=== PATIENT | female | born 1930 | race Caucasian/White ===

== ENCOUNTER 2017-08-25 18:01 | Inpatient (IN) | payer MEDICARE ==
[2017-08-25] MEDS ORDERED: DUONEB 0.5-3 MG/3 ml Neb IH ONE ×2 (18:08→18:42)
--- NOTE | 2017-08-25 18:13 | ERPHSYRPT ---
- History of Present Illness Time Seen by Provider: 08/25/17 18:08 Source: patient, family (son) Patient Subjective Stated Complaint: PT STATES FOR THE PAST FEW DAYS SHE HAS HAD A COUGH AND SOB. hX OF A-FIB. Triage Nursing Assessment: PT PALE, WARM, DRY. LUNG SOUNDS DIMINISHED. PT SOB WITH EXERTION FROM WHEELCHAIR TO BED. Physician History: CC: short of air Hx: 87 y/o patient of Dr Rothman. She has hx of paroxysmal atrial fibrillation and is now on multaq and xarelto. She was in and out of afib last week. She had some episodes of cough and shortness of breath. and now today. No fever. No chest pain. She has some exertional dyspnea and feels tired. Son brought her to ER. She lives alone with his close support. Allergies/Adverse Reactions: diphenhydramine HCl [From Benadryl] Allergy (Mild, Verified 08/25/17 18:09) iodine [Iodine] Allergy (Mild, Verified 08/25/17 18:09) Home Medications: Aspirin 81 mg PO DAILY 01/24/12 [History] Simvastatin 20Mg [Zocor 20Mg] 20 mg PO HS 01/24/12 [History] Amlodipine Besylate 5 mg PO DAILY 08/25/17 [History] Bifidobacterium Infantis [Align] 0 mg PO DAILY 08/25/17 [History] Calcium Citrate/Vitamin D3 [Citracal + D Caplet] 1 each PO DAILY 08/25/17 [ History] Carvedilol 25 mg PO TID 08/25/17 [History] Cetirizine HCl [Zyrtec] 10 mg PO DAILY 08/25/17 [History] Dronedarone Hydrochloride 400* [Multaq 400 MG] 400 mg PO BID 08/25/17 [ History] Potassium 99 mg PO DAILY 08/25/17 [History] Rivaroxaban 10 mg Tablet [Xarelto 10 mg Tablet] 15 mg PO DAILY 08/25/17 [ History] Hx Tetanus, Diphtheria Vaccination/Date Given: Yes (UNKNOWN) Hx Influenza Vaccination/Date Given: Yes Hx Pneumococcal Vaccination/Date Given: Yes Immunizations Up to Date: Yes - Review of Systems Constitutional: Chills, Fatigue, Malaise, Weakness Eyes: No Symptoms Ears, Nose, & Throat: No Symptoms Respiratory: Cough, Dyspnea Cardiac: No Chest Pain Abdominal/Gastrointestinal: No Abdominal Pain, No Nausea, No Vomiting, No Diarrhea Genitourinary Symptoms: No Dysuria Skin: No Rash Neurological: Headache All Other Systems: Reviewed and Negative - Past Medical History Pertinent Past Medical History: Yes Neurological History: No Pertinent History ENT History: No Pertinent History Cardiac History: High Cholesterol, Hypertension Respiratory History: No Pertinent History Endocrine Medical History: No Pertinent History Musculoskeletal History: No Pertinent History GI Medical History: No Pertinent History History: No Pertinent History Psycho-Social History: No Pertinent History Female Reproductive Disorders: No Pertinent History Other Medical History: Paroxysmal atiral fibrillation - Past Surgical History Past Surgical History: Yes Neuro Surgical History: No Pertinent History Cardiac: Cardiac Catheterization, Cardiac Stent Respiratory: No Pertinent History Gastrointestinal: No Pertinent History Genitourinary: No Pertinent History Musculoskeletal: No Pertinent History Female Surgical History: Hysterectomy - Social History Smoking Status: Never smoker Exposure to second hand smoke: No Drug Use: none Patient Lives Alone: No - Female History Hx Now: No - Nursing Vital Signs Nursing Vital Signs: Initial Vital Signs Temperature 99.7 F 08/25/17 18:02 Pulse Rate 69 08/25/17 18:02 Respiratory Rate 24 08/25/17 18:02 Blood Pressure 149/78 08/25/17 18:02 O2 Sat by Pulse Oximetry 93 L 08/25/17 18:02 Pain Scale Pain Intensity 0 - Physical Exam General Appearance: alert Eye Exam: PERRL/EOMI Ears, Nose, Throat Exam: dry mucous membranes Neck Exam: normal inspection, non-tender, supple Respiratory Exam: diminished breath sounds, No wheezing Cardiovascular Exam: regular rate/rhythm Gastrointestinal/Abdomen Exam: soft, No tenderness, No distention Extremity Exam: normal inspection, normal range of motion, No calf tenderness, No pedal edema Neurologic Exam: alert, oriented x 3, cooperative, sensation nml, No motor deficits Skin Exam: warm, dry, No rash SpO2 Interpretation: borderline oxygenation SpO2: 95 Oxygen Delivery: Room Air - Course Nursing assessment & vital signs reviewed: Yes EKG Interpreted by Me: RATE (70), Sinus Rhythm, NORMAL AXIS, NORMAL INTERVALS ( QTc 428), NORMAL QRS, NORMAL ST-T - Radiology Exams cxr X-ray Interpretation: Reviewed by me (moderate CHF, RLL infiltrates predominate) Ordered Tests: Active Orders 24 hr Category Date Time Status Manifold Operator STAT Care 08/25/17 18:09 Active EKG-ER Only STAT Care 08/25/17 18:08 Active IV Insertion STAT Care 08/25/17 18:08 Active Pulse Oximetry (ED) STAT Care 08/25/17 18:08 Active Rectal Temperature STAT Care 08/25/17 18:08 Active CHEST 1 VIEW (PORTABLE) Stat Exams 08/25/17 18:09 Taken BLOOD CULTURE Stat Lab 08/25/17 18:17 Received CBC W DIFF Stat Lab 08/25/17 18:17 Completed CMP Stat Lab 08/25/17 18:17 Completed Lactic Acid Stat Lab 08/25/17 18:08 Completed NT PRO BNP Stat Lab 08/25/17 18:17 Completed TROPONIN Q3H Lab 08/25/17 18:27 Completed TROPONIN Q3H Lab 08/25/17 21:15 Ordered TROPONIN Q3H Lab 08/26/17 00:15 Ordered TROPONIN Q3H Lab 08/26/17 03:15 Ordered TROPONIN Q3H Lab 08/26/17 06:15 Ordered VENOUS BLOOD GAS Stat Lab 08/25/17 18:08 Completed Respiratory Nebulizer STAT RT 08/25/17 18:09 Completed Medication Summary Generic Name Dose Route Start Last Admin Trade Name Freq PRN Reason Stop Dose Admin Sodium Chloride 1,000 mls @ 50 mls/hr 08/25/17 18:15 08/25/17 18:30 Sodium Chloride 0.9% 1000 Ml IV 09/24/17 18:14 50 mls/hr .Q20H MARICRUZ Administration Ceftriaxone Sodium/Dextrose 1 g in 50 mls @ 100 mls/hr 08/25/17 18:52 Rocephin 1 Gm-D5w 50 Ml Bag IV 08/25/17 19:21 STAT STA Azithromycin 500 mg in 250 mls @ 250 mls/hr 08/25/17 18:52 Zithromax 500 Mg/ 250 Ml Nacl Premix IV 08/25/17 19:51 STAT STA Discontinued Medications Generic Name Dose Route Start Last Admin Trade Name Freq PRN Reason Stop Dose Admin Acetaminophen 650 mg 08/25/17 18:52 Tylenol 325 Mg PO 08/25/17 18:53 STAT ONE Albuterol/Ipratropium 3 ml 08/25/17 18:08 08/25/17 18:45 Duoneb 0.5-3 Mg/3 Ml Neb IH 08/25/17 18:09 3 ml STAT ONE Administration Albuterol/Ipratropium Confirm 08/25/17 18:42 Duoneb 0.5-3 Mg/3 Ml Neb Administered 08/25/17 18:43 Dose 3 ml IH .STK-MED ONE Lab/Rad Data: Laboratory Result Diagrams 08/25/17 18:17 08/25/17 18:17 Laboratory Results 08/25/17 08/25/17 08/25/17 Range/Units 18:27 18:17 18:17 WBC 10.4 (4.0-10.5) K/mm3 RBC 4.15 (4.1-5.4) M/mm3 Hgb 12.3 (12.0-16.0) gm/dl Hct 37.3 (35-47) % MCV 89.9 (78-100) fl MCH 29.6 (26-32) pg MCHC 33.0 (32-36) g/dl RDW 13.2 (11.5-14.0) % Plt Count 176 (150-450) K/mm3 MPV 10.8 H (6-9.5) fl Gran % 77.9 H (36.0-66.0) % Lymphocytes % 9.7 L (24.0-44.0) % Monocytes % 10.3 (0.0-12.0) % Eosinophils % 1.7 (0.00-5.0) % Basophils % 0.4 (0.0-0.4) % Basophils # 0.04 (0-0.4) VBG pH (7.32-7.42) VBG pCO2 at Pat Temp (42-55) mm/Hg VBG pO2 at Pat Temp (25-40) mm/Hg VBG HCO3 (22-28) meq/L VBG O2 Sat (Eliel) (95-100) VBG Base Excess (-2.0-2.0) VBG Hemoglobin VBG Carboxyhemoglobin (0.0-6.9) % T HGB POC Potassium (3.5-5.1) Sodium 135 L (136-145) mEq/L Potassium 3.9 (3.5-5.1) mEq/L Chloride 101 (98-107) mEq/L Carbon Dioxide 23.7 (21-32) mEq/L Anion Gap 14.2 (5-15) MEQ/L BUN 19 (9-20) mg/dL Creatinine 1.07 (0.55-1.30) mg/dl Estimated GFR 52 ML/MIN Glucose 145 H (70-110) MG/DL Lactic Acid (0.4-2.0) Calcium 8.6 (8.5-10.1) mg/dL Total Bilirubin 0.60 (0.2-1.0) mg/dL AST 20 (15-37) U/L ALT 26 (12-78) U/L Alkaline Phosphatase 71 (46-116) U/L Troponin I < 0.017 (0.000-0.056) ng/ml NT-Pro-B Natriuret Pep 1974 H (0-450) pg/ml Serum Total Protein 7.3 (6.4-8.2) gm/dL Albumin 3.6 (3.4-5.0) g/dL 08/25/17 Range/Units 18:08 WBC (4.0-10.5) K/mm3 RBC (4.1-5.4) M/mm3 Hgb (12.0-16.0) gm/dl Hct (35-47) % MCV (78-100) fl MCH (26-32) pg MCHC (32-36) g/dl RDW (11.5-14.0) % Plt Count (150-450) K/mm3 MPV (6-9.5) fl Gran % (36.0-66.0) % Lymphocytes % (24.0-44.0) % Monocytes % (0.0-12.0) % Eosinophils % (0.00-5.0) % Basophils % (0.0-0.4) % Basophils # (0-0.4) VBG pH 7.41 (7.32-7.42) VBG pCO2 at Pat Temp 38 L (42-55) mm/Hg VBG pO2 at Pat Temp 47 H (25-40) mm/Hg VBG HCO3 24.1 (22-28) meq/L VBG O2 Sat (Eliel) 89.5 L (95-100) VBG Base Excess -0.4 (-2.0-2.0) VBG Hemoglobin 13.2 VBG Carboxyhemoglobin 2.8 (0.0-6.9) % T HGB POC Potassium 4.2 (3.5-5.1) Sodium (136-145) mEq/L Potassium (3.5-5.1) mEq/L Chloride (98-107) mEq/L Carbon Dioxide (21-32) mEq/L Anion Gap (5-15) MEQ/L BUN (9-20) mg/dL Creatinine (0.55-1.30) mg/dl Estimated GFR ML/MIN Glucose (70-110) MG/DL Lactic Acid 1.1 (0.4-2.0) Calcium (8.5-10.1) mg/dL Total Bilirubin (0.2-1.0) mg/dL AST (15-37) U/L ALT (12-78) U/L Alkaline Phosphatase (46-116) U/L Troponin I (0.000-0.056) ng/ml NT-Pro-B Natriuret Pep (0-450) pg/ml Serum Total Protein (6.4-8.2) gm/dL Albumin (3.4-5.0) g/dL - Progress Progress Note: 08/25/17 19:13 She appears to have some degree of heart failure and pneumonia. 101 fever. She feels better after nebs. CAlled Dr Sylvester Hoang for Gianna and will admit to IP Tele. Low dose lasix, abtx. Cultures sent. Discussed with DrCynthia: Nader Will see patient in: hospital (full admit) Counseled pt/family regarding: lab results, diagnosis, need for follow-up, rad results - Departure Time of Disposition: 19:17 Departure Disposition: In-patient Admission Clinical Impression: CHF (congestive heart failure), Fever, Pneumonia Condition: Fair Critical Care Time: No Referrals: JON OG [Primary Care Provider] -
[2017-08-25] MEDS ORDERED: Sodium Chloride 0.9% 1000 ML 1,000 ML IV SCH (18:15)
[2017-08-25 18:19] LABS: Lactic Acid 1.1 (0.4-2.0); VBG BASE EXCESS -0.4 (-2.0-2.0); VBG CARBOXYHEMOGLOBIN 2.8 % T HGB (0.0-6.9); VBG HCO3- 24.1 meq/L (22-28); VBG HEMOGLOBIN 13.2; VBG O2 SATURATION 89.5 (95-100); VBG POTASSIUM 4.2 (3.5-5.1); VBG pH 7.41 (7.32-7.42)
[2017-08-25 18:22] LABS: BASOPHIL % 0.4 % (0.0-0.4); Basophil (Absolute #) 0.04 (0-0.4); Eosinophil % 1.7 % (0.00-5.0); Eosinophil (Absolute #) 0.18 (0-0.5); Granulocyte Absolute (ANC) 8.13 (1.4-6.9); Granulocytes % 77.9 % (36.0-66.0); Hematocrit 37.3 % (35-47); Hemoglobin 12.3 gm/dl (12.0-16.0); Lymphocyte (Absolute #) 1.01 (1.0-4.6); Lymphocytes % 9.7 % (24.0-44.0); Mean Cell Volume 89.9 fl (78-100); Mean Corpuscular Hemoglobin 29.6 pg (26-32); Mean Platelet Volume 10.8 fl (6-9.5); Monocyte (Absolute #) 1.07 (0.0-1.3); Monocytes % 10.3 % (0.0-12.0); Platelet Count 176 K/mm3 (150-450); Red Blood Count 4.15 M/mm3 (4.1-5.4); Red Cell Distribution Width 13.2 % (11.5-14.0); White Blood Count 10.4 K/mm3 (4.0-10.5)
[2017-08-25 18:48] LABS: ALBUMIN 3.6 g/dL (3.4-5.0); ANION GAP 14.2 MEQ/L (5-15); BILIRUBIN,TOTAL 0.6 mg/dL (0.2-1.0); Calcium 8.6 mg/dL (8.5-10.1); Carbon Dioxide 23.7 mEq/L (21-32); Creatinine 1 1.07 mg/dl (0.55-1.30); Potassium 3.9 mEq/L (3.5-5.1); Total Protein 7.3 gm/dL (6.4-8.2)
[2017-08-25] MEDS ORDERED: Zithromax 500 MG/ 250 ML NaCl Premix 500 MG/250 ML IVPB IV STA (18:52)
[2017-08-25] MEDS ORDERED: ROCEPHIN 1 Gm-D5w 50 ml Bag** 1 G/50 ML IVPB IV STA (18:52)
[2017-08-25] MEDS ORDERED: TYLENOL 325 MG PO ONE (18:52)
[2017-08-25] MEDS ORDERED: Lasix 40 MG/4 ML IV ONE (19:11)
[2017-08-25 19:22] LABS: INFLUENZA A NEGATIVE (NEGATIVE); INFLUENZA B NEGATIVE (NEGATIVE); RESPIRATORY SYNCTIAL VIRUS NEGATIVE (Negative)
[2017-08-25] MEDS ORDERED: ROCEPHIN 1 Gm-D5w 50 ml Bag** 1 G/50 ML IVPB IV ONE (19:22)
[2017-08-25] MEDS ORDERED: Lasix 40 MG/4 ML ONE (19:22)
[2017-08-25] MEDS ORDERED: Zithromax 500 MG/ 250 ML NaCl Premix 500 MG/250 ML IVPB IV ONE (19:22)
[2017-08-25] MEDS ORDERED: TYLENOL 325 MG ONE (19:22)
[2017-08-25] MEDS ORDERED: TYLENOL 325 MG PO PRN (20:16)
--- NOTE | 2017-08-25 21:39 | XRAY ---
Indication: Short of breath. Comparison: December 16, 2015. Portable chest now demonstrates cardiomegaly, vascular congestion, and tiny bibasilar effusions favoring cardiac decompensation. Query superimposed right base infiltrate versus atelectasis.
[2017-08-25] MEDS ORDERED: Multaq 400 MG PO SCH (22:00)
[2017-08-25] MEDS ORDERED: DUONEB 0.5-3 MG/3 ml Neb IH PRN (22:16)
[2017-08-25] MEDS ORDERED: ZOCOR 20MG ONE (22:38)
[2017-08-25] MEDS: COREG 12.5 MG PO SCH (22:43)
[2017-08-25] MEDS: ZOCOR 20MG PO SCH (22:43)
[2017-08-25] MEDS ORDERED: DUONEB 0.5-3 MG/3 ml Neb IH SCH (23:00)
[2017-08-26 06:23] LABS: BASOPHIL % 0.2 % (0.0-0.4); Basophil (Absolute #) 0.02 (0-0.4); Eosinophil % 0.5 % (0.00-5.0); Eosinophil (Absolute #) 0.04 (0-0.5); Granulocyte Absolute (ANC) 6.27 (1.4-6.9); Granulocytes % 77.3 % (36.0-66.0); Hemoglobin 10.7 gm/dl (12.0-16.0); Lymphocytes % 9.9 % (24.0-44.0); Mean Cell Volume 90.7 fl (78-100); Mean Corpuscular Hgb Concent. 32.4 g/dl (32-36); Mean Platelet Volume 10.6 fl (6-9.5); Monocyte (Absolute #) 0.98 (0.0-1.3); Monocytes % 12.1 % (0.0-12.0); Platelet Count 143 K/mm3 (150-450); Red Blood Count 3.64 M/mm3 (4.1-5.4); Red Cell Distribution Width 13.1 % (11.5-14.0); White Blood Count 8.1 K/mm3 (4.0-10.5)
[2017-08-26 06:24] LABS: Mean Corpuscular Hemoglobin 29.3 pg (26-32)
[2017-08-26 06:45] LABS: Calcium 8.1 mg/dL (8.5-10.1); Carbon Dioxide 26.3 mEq/L (21-32); Creatinine 1 1.12 mg/dl (0.55-1.30); Potassium 3.2 mEq/L (3.5-5.1)
[2017-08-26] MEDS: Multaq 400 MG PO SCH ×2 (08:58→17:04)
--- NOTE | 2017-08-26 09:31 | PCM.HP ---
History of Present Illness - Chief Complaint Chief Complaint: c/o shortness of breath for 2-3 days History of Present Illness: is a 87 year old female has hx of paroxysmal atrial fibrillation and is now on multaq and xarelto. She was in and out of afib last week. She had some episodes of cough and shortness of breath. and now today. No fever. No chest pain. She has some exertional dyspnea and feels tired. Son brought her to ER. - Review of Systems Constitutional: No Fever, No Chills Eyes: No Symptoms Ears, Nose, & Throat: No Symptoms Respiratory: Orthopnea, Short Of Breath, No Cough Cardiac: Edema, No Chest Pain, No Syncope Abdominal/Gastrointestinal: No Abdominal Pain, No Nausea, No Vomiting, No Diarrhea Genitourinary Symptoms: No Dysuria Musculoskeletal: No Back Pain, No Neck Pain Skin: No Rash Neurological: No Dizziness, No Focal Weakness, No Sensory Changes Psychological: No Symptoms Endocrine: No Symptoms Hematologic/Lymphatic: No Symptoms Immunological/Allergic: No Symptoms Medications & Allergies Home Medications: Home Medication List Aspirin 81 mg PO DAILY 01/24/12 [History Confirmed 08/25/17] Simvastatin 20Mg [Zocor 20Mg] 20 mg PO HS 01/24/12 [History Confirmed ] Amlodipine Besylate 5 mg PO DAILY 08/25/17 [History Confirmed 08/25/17] Bifidobacterium Infantis [Align] 0 mg PO DAILY 08/25/17 [History Confirmed 08/25] Calcium Citrate/Vitamin D3 [Citracal + D Caplet] 1 each PO DAILY 08/25/17 [ History Confirmed 08/25/17] Carvedilol 25 mg PO TID 08/25/17 [History Confirmed 08/25/17] Cetirizine HCl [Zyrtec] 10 mg PO DAILY 08/25/17 [History Confirmed 08/25/17] Dronedarone Hydrochloride 400* [Multaq 400 MG] 400 mg PO BID 08/25/17 [ History Confirmed 08/25/17] Patient Own Med [Patient Own Medication] 1 tab PO BID 08/25/17 [History Confirmed 08/25/17] Potassium 99 mg PO DAILY 08/25/17 [History Confirmed 08/25/17] Rivaroxaban 10 mg Tablet [Xarelto 10 mg Tablet] 15 mg PO DAILY 08/25/17 [ History Confirmed 08/25/17] Allergies/Adverse Reactions: Allergies Allergy/AdvReac Type Severity Reaction Status Date / Time diphenhydramine HCl Allergy Mild Verified 08/25/17 18:09 [From Benadryl] iodine [Iodine] Allergy Mild Verified 08/25/17 18:09 erythromycin base AdvReac Rash Verified 08/25/17 20:35 - Past Medical History Past Medical History: Yes Neurological History: No Pertinent History ENT History: No Pertinent History Cardiac History: High Cholesterol, Hypertension Respiratory History: No Pertinent History Endocrine Medical History: No Pertinent History Musculoskelatal History: No Pertinent History GI Medical History: No Pertinent History History: No Pertinent History Pyscho-Social History: No Pertinent History Reproductive Disorders: No Pertinent History Comment: Paroxysmal atiral fibrillation - Female History Are you now?: No - Past Surgical History Past Surgical History: Yes Neuro Surgical History: No Pertinent History Cardiac History: Cardiac Catheterization, Cardiac Stent Respiratory Surgery: No Pertinent History GI Surgical History: No Pertinent History Genitourinary Surgical Hx: No Pertinent History Musculskeletal Surgical Hx: No Pertinent History Female Surgical History: Hysterectomy - Social History Smoking Status: Never smoker Exposure to second hand smoke: No Alcohol: None Drug Use: none - Physical Exam Vital Signs: Vital Signs - 24 hr Temp Pulse Resp BP Pulse Ox 08/26/17 07:44 66 16 94 L 08/26/17 07:30 99.2 F 65 16 93/50 93 L 08/26/17 04:00 100.1 F 68 19 106/52 92 L 08/26/17 00:00 99.5 F 74 20 110/56 93 L 08/25/17 22:17 72 18 93 L 08/25/17 20:37 98.5 F 67 16 119/63 90 L 08/25/17 19:19 95 08/25/17 18:50 70 20 90 L 08/25/17 18:05 101.2 F 95 08/25/17 18:02 99.7 F 70 18 137/70 93 L Oxygen-Last 24 hours O2 Percentage 3 Liters = 32% O2 Percentage 3 Liters = 32% O2 Percentage 3 Liters = 32% O2 Percentage 3 Liters = 32% O2 Percentage 3 Liters = 32% General Appearance: no apparent distress, alert Neurologic Exam: alert, oriented x 3, cooperative, normal mood/affect, nml cerebellar function, nml station & gait, sensation nml, No motor deficits Eye Exam: PERRL/EOMI, eyes nml inspection Ears, Nose, Throat Exam: normal ENT inspection, TMs normal, pharynx normal, moist mucous membranes Neck Exam: normal inspection, non-tender, supple, full range of motion Respiratory Exam: normal breath sounds, lungs clear, No respiratory distress Cardiovascular Exam: regular rate/rhythm, normal heart sounds, normal peripheral pulses Gastrointestinal/Abdomen Exam: soft, normal bowel sounds, No tenderness, No mass Back Exam: normal inspection, normal range of motion, No CVA tenderness, No vertebral tenderness Extremity Exam: normal inspection, normal range of motion, pelvis stable Skin Exam: normal color, warm, dry, No rash Lymphatic Exam: No adenopathy Results - Labs Lab/Micro Results: Lab Results-Last 24 Hours 08/25/17 08/26/17 08/26/17 Range/Units 21:23 00:11 03:16 WBC (4.0-10.5) K/mm3 RBC (4.1-5.4) M/mm3 Hgb (12.0-16.0) gm/dl Hct (35-47) % MCV (78-100) fl MCH (26-32) pg MCHC (32-36) g/dl RDW (11.5-14.0) % Plt Count (150-450) K/mm3 MPV (6-9.5) fl Gran % (36.0-66.0) % Lymphocytes % (24.0-44.0) % Monocytes % (0.0-12.0) % Eosinophils % (0.00-5.0) % Basophils % (0.0-0.4) % Basophils # (0-0.4) Sodium (136-145) mEq/L Potassium (3.5-5.1) mEq/L Chloride (98-107) mEq/L Carbon Dioxide (21-32) mEq/L Anion Gap (5-15) MEQ/L BUN (9-20) mg/dL Creatinine (0.55-1.30) mg/dl Estimated GFR ML/MIN Glucose (70-110) MG/DL Calcium (8.5-10.1) mg/dL Troponin I < 0.017 < 0.017 < 0.017 (0.000-0.056) ng/ml 08/26/17 08/26/17 08/26/17 Range/Units 06:15 06:15 06:15 WBC 8.1 (4.0-10.5) K/mm3 RBC 3.64 L (4.1-5.4) M/mm3 Hgb 10.7 L (12.0-16.0) gm/dl Hct 33.0 L (35-47) % MCV 90.7 (78-100) fl MCH 29.3 (26-32) pg MCHC 32.4 (32-36) g/dl RDW 13.1 (11.5-14.0) % Plt Count 143 L (150-450) K/mm3 MPV 10.6 H (6-9.5) fl Gran % 77.3 H (36.0-66.0) % Lymphocytes % 9.9 L (24.0-44.0) % Monocytes % 12.1 H (0.0-12.0) % Eosinophils % 0.5 (0.00-5.0) % Basophils % 0.2 (0.0-0.4) % Basophils # 0.02 (0-0.4) Sodium 136 (136-145) mEq/L Potassium 3.2 L (3.5-5.1) mEq/L Chloride 102 (98-107) mEq/L Carbon Dioxide 26.3 (21-32) mEq/L Anion Gap 11.0 (5-15) MEQ/L BUN 18 (9-20) mg/dL Creatinine 1.12 (0.55-1.30) mg/dl Estimated GFR 49 ML/MIN Glucose 124 H (70-110) MG/DL Calcium 8.1 L (8.5-10.1) mg/dL Troponin I < 0.017 (0.000-0.056) ng/ml - Other Procedures and Tests Respiratory Therapy 08/25/17 22:16 Oxygen NASAL CANNULA 3 lpm 08/25/17 22:17 Respiratory Nebulizer UD Assessment/Plan (1) Pneumonia Current Visit: Yes Status: Acute Qualifiers: Pneumonia type: due to unspecified organism Laterality: right Lung location: lower lobe of lung Qualified Code(s): J18.1 - Lobar pneumonia, unspecified organism Code(s): J18.9 - PNEUMONIA, UNSPECIFIED ORGANISM (2) CHF (congestive heart failure) Current Visit: Yes Status: Acute Qualifiers: Congestive heart failure type: combined Congestive heart failure chronicity : acute on chronic Qualified Code(s): I50.43 - Acute on chronic combined systolic (congestive) and diastolic (congestive) heart failure Code(s): I50.9 - HEART FAILURE, UNSPECIFIED
[2017-08-26] MEDS ORDERED: MEDICATION INTERVENTION MC PRN (11:24)
[2017-08-26] MEDS: XARELTO 10 MG TABLET PO SCH (11:45)
[2017-08-26] MEDS: COREG 12.5 MG PO SCH ×3 (11:46→21:58)
[2017-08-26] MEDS: ECOTRIN 81 MG PO SCH (11:46)
[2017-08-26] MEDS: Calcium 500MG W/Vit D Tablet PO SCH (11:46)
[2017-08-26] MEDS: CLARITIN 10 MG PO SCH (11:46)
[2017-08-26] MEDS: Acidophilus TABLET PO SCH (11:46)
[2017-08-26] MEDS: NORVASC 5 MG PO SCH (11:47)
[2017-08-26] MEDS: Lasix 40 MG/4 ML IV SCH (16:07)
[2017-08-26] MEDS: ROCEPHIN 1 Gm-D5w 50 ml Bag** 1 G/50 ML IVPB IV SCH (17:03)
[2017-08-26] MEDS: Zithromax 500 MG/ 250 ML NaCl Premix 500 MG/250 ML IVPB IV SCH (18:09)
[2017-08-26] MEDS: ZOCOR 20MG PO SCH (21:58)
[2017-08-26] MEDS ORDERED: [UNRECOGNIZED DRUG - OTHER] PO SCH (22:00)
[2017-08-27] MEDS: Multaq 400 MG PO SCH ×2 (07:56→16:32)
--- NOTE | 2017-08-27 09:35 | XRAY ---
Indication: Pneumonia. CHF. Comparison: August 25, 2017. PA/lateral chest demonstrates resolved cardiomegaly with diminished vascular congestion. Stable tiny bibasilar effusions. Stable benign lingular nodule dating back to April 2014. No new cardiopulmonary abnormalities.
[2017-08-27] MEDS: Acidophilus TABLET PO SCH (09:38)
[2017-08-27] MEDS: XARELTO 10 MG TABLET PO SCH (09:38)
[2017-08-27] MEDS: NORVASC 5 MG PO SCH (09:38)
[2017-08-27] MEDS: CLARITIN 10 MG PO SCH (09:38)
[2017-08-27] MEDS: Lasix 40 MG/4 ML IV SCH ×2 (09:39→16:32)
[2017-08-27] MEDS: COREG 12.5 MG PO SCH ×3 (09:39→21:33)
[2017-08-27] MEDS: Calcium 500MG W/Vit D Tablet PO SCH (09:49)
[2017-08-27] MEDS: ECOTRIN 81 MG PO SCH (09:49)
[2017-08-27] MEDS ORDERED: NON-FORMULARY ITEM (Cetirizine Hcl [Zyrtec] 10 MG) PO SCH (10:00)
[2017-08-27] MEDS ORDERED: NON-FORMULARY ITEM (Potassium [Potassium] 99 MG) PO SCH (10:00)
[2017-08-27] MEDS ORDERED: BIFIDOBACTERIUM INFANTIS PO SCH (10:00)
[2017-08-27] MEDS ORDERED: NON-FORMULARY ITEM (Calcium Citrate/Vitamin D3 [Citracal + D Caplet] 1 EACH) PO SCH (10:00)
[2017-08-27 10:01] LABS: Hematocrit 34.3 % (35-47); Hemoglobin 11.2 gm/dl (12.0-16.0); Mean Corpuscular Hgb Concent. 32.7 g/dl (32-36); Mean Platelet Volume 10.6 fl (6-9.5); Platelet Count 166 K/mm3 (150-450); Red Blood Count 3.81 M/mm3 (4.1-5.4); Red Cell Distribution Width 13.2 % (11.5-14.0); White Blood Count 7.9 K/mm3 (4.0-10.5)
[2017-08-27 10:04] LABS: Mean Corpuscular Hemoglobin 29.3 pg (26-32)
[2017-08-27 10:09] LABS: ANION GAP 11.1 MEQ/L (5-15); BILIRUBIN,TOTAL 0.7 mg/dL (0.2-1.0); Calcium 8.5 mg/dL (8.5-10.1); Carbon Dioxide 28.2 mEq/L (21-32); Creatinine 1 1.08 mg/dl (0.55-1.30); Potassium 3.1 mEq/L (3.5-5.1); Total Protein 6.9 gm/dL (6.4-8.2)
--- NOTE | 2017-08-27 13:21 | PCM.NOTE ---
Date and Time: 08/27/17 1319 Subjective Assessment: still short of breath, - Review of Systems Constitutional: Fatigue, Weakness, No Fever, No Chills Eyes: No Symptoms Ears, Nose, & Throat: No Symptoms Respiratory: Orthopnea, Short Of Breath, No Cough Cardiac: Palpitations, No Chest Pain, No Edema, No Syncope Abdominal/Gastrointestinal: No Abdominal Pain, No Nausea, No Vomiting, No Diarrhea Genitourinary Symptoms: No Dysuria Musculoskeletal: No Back Pain, No Neck Pain Skin: No Rash Neurological: No Dizziness, No Focal Weakness, No Sensory Changes Psychological: No Symptoms Endocrine: No Symptoms Hematologic/Lymphatic: No Symptoms Immunological/Allergic: No Symptoms Objective Exam General Appearance: no apparent distress, alert Neurologic Exam: alert, oriented x 3, cooperative, normal mood/affect, nml cerebellar function, sensation nml, No motor deficits Skin Exam: normal color, warm, dry Eye Exam: PERRL, EOMI, eyes nml inspection Ears, Nose, Throat Exam: normal ENT inspection, pharynx normal, moist mucous membranes Neck Exam: normal inspection, non-tender, supple, full range of motion Respiratory Exam: crackles/rales, No respiratory distress Cardiovascular Exam: irregular Gastrointestinal/Abdomen Exam: soft, No tenderness, No mass Extremity Exam: normal inspection, normal range of motion Back Exam: normal inspection, normal range of motion, No CVA tenderness, No vertebral tenderness Pelvic Exam: deferred Rectal Exam: deferred OBJECTIVE DATA Vital Signs: Vital Signs - 24 hr Temp Pulse Resp BP Pulse Ox 08/27/17 11:21 98.5 F 96 H 18 108/59 93 L 08/27/17 07:25 98.4 F 86 18 104/65 92 L 08/27/17 04:00 98.1 F 85 16 96/54 90 L 08/27/17 00:00 99 F 99 H 20 104/56 90 L 08/26/17 21:24 90 18 91 L 08/26/17 20:00 98.9 F 93 H 18 101/61 91 L 08/26/17 15:59 99.8 F 66 16 121/58 90 L Oxygen-Last 24 hours O2 Percentage 3 Liters = 32% O2 Percentage 3 Liters = 32% O2 Percentage 3 Liters = 32% O2 Percentage 3 Liters = 32% O2 Percentage 3 Liters = 32% Pain Assessment - Last Documented Pain Intensity 0 Pain Scale Used 0-10 Pain Scale Intake and Output: Intake & Output 08/25/17 08/26/17 08/27/17 08/28/17 11:59 11:59 11:59 11:59 Intake Total 1052 1606 Output Total 600 1900 Balance 452 -294 Weight 71.5 kg 71.3 kg Lab Results: Lab Results-Last 24 Hours 08/27/17 08/27/17 Range/Units 09:28 09:28 WBC 7.9 (4.0-10.5) K/mm3 RBC 3.81 L (4.1-5.4) M/mm3 Hgb 11.2 L (12.0-16.0) gm/dl Hct 34.3 L (35-47) % MCV 90.0 (78-100) fl MCH 29.3 (26-32) pg MCHC 32.7 (32-36) g/dl RDW 13.2 (11.5-14.0) % Plt Count 166 (150-450) K/mm3 MPV 10.6 H (6-9.5) fl Sodium 135 L (136-145) mEq/L Potassium 3.1 L (3.5-5.1) mEq/L Chloride 99 (98-107) mEq/L Carbon Dioxide 28.2 (21-32) mEq/L Anion Gap 11.1 (5-15) MEQ/L BUN 13 (9-20) mg/dL Creatinine 1.08 (0.55-1.30) mg/dl Estimated GFR 51 ML/MIN Glucose 194 H (70-110) MG/DL Calcium 8.5 (8.5-10.1) mg/dL Total Bilirubin 0.70 (0.2-1.0) mg/dL AST 16 (15-37) U/L ALT 18 (12-78) U/L Alkaline Phosphatase 56 (46-116) U/L NT-Pro-B Natriuret Pep 4691 H (0-450) pg/ml Serum Total Protein 6.9 (6.4-8.2) gm/dL Albumin 3.0 L (3.4-5.0) g/dL Radiology Exams: Radiology Procedures Category Date Time Status CHEST 2 VIEWS (PA AND LAT) Urgent Exams 08/27/17 09:18 Completed Assessment/Plan (1) Pneumonia Current Visit: Yes Status: Acute Qualifiers: Pneumonia type: due to unspecified organism Laterality: right Lung location: lower lobe of lung Qualified Code(s): J18.1 - Lobar pneumonia, unspecified organism Code(s): J18.9 - PNEUMONIA, UNSPECIFIED ORGANISM (2) CHF (congestive heart failure) Current Visit: Yes Status: Acute Qualifiers: Congestive heart failure type: combined Congestive heart failure chronicity : acute on chronic Qualified Code(s): I50.43 - Acute on chronic combined systolic (congestive) and diastolic (congestive) heart failure Code(s): I50.9 - HEART FAILURE, UNSPECIFIED (3) Atrial fibrillation Current Visit: Yes Status: Acute Qualifiers: Atrial fibrillation type: chronic Qualified Code(s): I48.2 - Chronic atrial fibrillation Code(s): I48.91 - UNSPECIFIED ATRIAL FIBRILLATION (4) COPD (chronic obstructive pulmonary disease) Current Visit: Yes Status: Acute Qualifiers: COPD type: unspecified COPD Qualified Code(s): J44.9 - Chronic obstructive pulmonary disease, unspecified Assessment & Plan: continue oxygen
[2017-08-27] MEDS ORDERED: POTASSIUM CHLORIDE 20 mEq IN WATER 100ML 20 MEQ/100 ML BAG IV SCH (13:30)
[2017-08-27] MEDS ORDERED: Potassium Chloride 40 MEQ/20 ML VIAL 40 MEQ, XYLOCAINE 1% HCL 20 ML MDV*** 2 ML in Sodi... IV ONE (13:45)
[2017-08-27] MEDS: ROCEPHIN 1 Gm-D5w 50 ml Bag** 1 G/50 ML IVPB IV SCH (18:12)
[2017-08-27] MEDS: Zithromax 500 MG/ 250 ML NaCl Premix 500 MG/250 ML IVPB IV SCH (20:06)
[2017-08-27] MEDS: ZOCOR 20MG PO SCH (21:34)
[2017-08-28] MEDS: Multaq 400 MG PO SCH (07:53)
[2017-08-28] MEDS: XARELTO 10 MG TABLET PO SCH (09:46)
[2017-08-28] MEDS: Acidophilus TABLET PO SCH (09:46)
[2017-08-28] MEDS: NORVASC 5 MG PO SCH (09:46)
[2017-08-28] MEDS: COREG 12.5 MG PO SCH (09:46)
[2017-08-28] MEDS: Lasix 40 MG/4 ML IV SCH (09:46)
[2017-08-28] MEDS: CLARITIN 10 MG PO SCH (09:47)
[2017-08-28] MEDS: ECOTRIN 81 MG PO SCH (09:47)
[2017-08-28] MEDS: Calcium 500MG W/Vit D Tablet PO SCH (09:47)
[2017-08-28 11:27] VITALS: BP 122/63; PULSE 78; O2SAT 97
--- NOTE | 2017-08-28 11:42 | PCM.DS ---
Discharge Summary Date of Admission: 08/25/17 20:05 Admitting Physician: ESDRAS PARTIDA Primary Care Provider: ESDRAS PARTIDA Allergies Allergies diphenhydramine HCl [From Benadryl] Allergy (Mild, Verified 08/25/17 18:09) iodine [Iodine] Allergy (Mild, Verified 08/25/17 18:09) erythromycin base Adverse Reaction (Verified 08/25/17 20:35) Rash Hospital Summary - Hospital Course Hospital Course: Chief Complaint Diagnosis c/o shortness of breath for 2-3 days Allergies Allergy/AdvReac Type Severity Reaction Status Date / Time diphenhydramine HCl Allergy Mild Verified 08/25/17 18:09 [From Benadryl] iodine [Iodine] Allergy Mild Verified 08/25/17 18:09 erythromycin base AdvReac Rash Verified 08/25/17 20:35 Vital Signs (Last 24 hours) Temp Pulse Resp BP Pulse Ox 08/28/17 11:26 98.1 F 78 18 122/63 97 08/28/17 07:30 98.4 F 81 16 120/57 94 L 08/28/17 04:00 99.4 F 81 18 121/59 93 L 08/28/17 00:00 98.7 F 79 18 118/59 92 L 08/27/17 21:10 72 18 86 L 08/27/17 20:00 99.1 F 68 18 111/55 92 L 08/27/17 15:37 98.1 F 90 20 110/60 94 L Home Medications Medication Instructions Recorded Confirmed Last Taken Type Amlodipine Besylate 5 mg PO DAILY 08/25/17 08/25/17 08/25/17 History Bifidobacterium Infantis [Align] 0 mg PO DAILY 08/25/17 08/25/17 08/25/17 History Calcium Citrate/Vitamin D3 1 each PO DAILY 08/25/17 08/25/17 08/25/17 History [Citracal + D Caplet] Carvedilol 25 mg PO TID 08/25/17 08/25/17 08/25/17 History Cetirizine HCl [Zyrtec] 10 mg PO DAILY 08/25/17 08/25/17 08/25/17 History Dronedarone Hydrochloride 400* 400 mg PO BID 08/25/17 08/25/17 08/25/17 History [Multaq 400 MG] Patient Own Med [Patient Own 1 tab PO BID 08/25/17 08/25/17 08/25/17 History Medication] Potassium 99 mg PO DAILY 08/25/17 08/25/17 08/25/17 History Rivaroxaban 10 mg Tablet 15 mg PO DAILY 08/25/17 08/25/17 08/25/17 History [Xarelto 10 mg Tablet] Current Medications Generic Name Dose Route Start Last Admin Trade Name Freq PRN Reason Stop Dose Admin Acetaminophen 650 mg 08/25/17 20:16 08/26/17 03:26 Tylenol 325 Mg PO 09/24/17 20:15 650 mg Q4H PRN PRN Administration PAIN AND/OR FEVER Albuterol/Ipratropium 3 ml 08/25/17 22:16 Duoneb 0.5-3 Mg/3 Ml Neb IH 09/24/17 22:14 Q4HPRN PRN SHORTNESS OF BREATH/WHEEZING Amlodipine Besylate 5 mg 08/26/17 12:00 08/28/17 09:46 Norvasc 5 Mg PO 09/25/17 11:59 5 mg DAILY [facility] Administration Aspirin 81 mg 08/26/17 12:00 08/28/17 09:47 Ecotrin 81 Mg PO 09/25/17 11:59 Not Given DAILY [facility] Calcium Carbonate 1 tab 08/26/17 12:00 08/28/17 09:47 Calcium 500mg W/Vit D Tablet PO 09/25/17 11:59 Not Given DAILY [facility] Carvedilol 25 mg 08/25/17 22:00 08/28/17 09:46 Coreg 12.5 Mg PO 09/24/17 21:59 25 mg TID [facility] Administration Dronedarone 400 mg 08/26/17 08:00 08/28/17 07:53 Multaq 400 Mg PO 09/25/17 07:59 400 mg BIDWM [facility]ICRUZ Administration Furosemide 40 mg 08/26/17 17:00 08/28/17 09:46 Lasix 40 Mg/4 Ml IV 09/25/17 16:59 40 mg BID DIURETIC [facility]ICRUZ Administration Azithromycin 500 mg in 250 mls @ 250 mls/hr 08/26/17 19:00 08/27/17 20:06 Zithromax 500 Mg/ 250 Ml Nacl Premix IV 09/25/17 18:59 250 mls/hr Q24H [facility] Administration Ceftriaxone Sodium/Dextrose 1 g in 50 mls @ 100 mls/hr 08/26/17 18:00 18:12 Rocephin 1 Gm-D5w 50 Ml Bag IV 09/25/17 17:59 100 mls/hr Q24H [facility] Administration Lactobacillus Acidophilus 1 tab 08/26/17 12:00 08/28/17 09:46 Acidophilus Tablet PO 09/25/17 11:59 Not Given DAILY [facility] Loratadine 10 mg 08/26/17 12:00 08/28/17 09:47 Claritin 10 Mg PO 09/25/17 11:59 Not Given DAILY [facility] Simvastatin 20 mg 08/26/17 22:00 08/27/17 21:34 Zocor 20mg PO 09/25/17 21:59 20 mg HS [facility]UZ Administration Discontinued Medications Generic Name Dose Route Start Last Admin Trade Name Donq PRN Reason Stop Dose Admin Acetaminophen 650 mg 08/25/17 18:52 08/25/17 19:26 Tylenol 325 Mg PO 08/25/17 18:53 650 mg STAT ONE Administration Acetaminophen Confirm 08/25/17 19:22 Tylenol 325 Mg Administered 08/25/17 19:23 Dose 650 mg .ROUTE .STK-MED ONE Albuterol/Ipratropium 3 ml 08/25/17 18:08 08/25/17 18:45 Duoneb 0.5-3 Mg/3 Ml Neb IH 08/25/17 18:09 3 ml STAT ONE Administration Albuterol/Ipratropium Confirm 08/25/17 18:42 Duoneb 0.5-3 Mg/3 Ml Neb Administered 08/25/17 18:43 Dose 3 ml IH .STK-MED ONE Albuterol/Ipratropium 3 ml 08/25/17 23:00 Duoneb 0.5-3 Mg/3 Ml Neb IH 09/24/17 22:59 Q4HRT [facility]ICRUZ Dronedarone 400 mg 08/25/17 22:00 08/25/17 22:43 Multaq 400 Mg PO 09/24/17 21:59 400 mg BID MARICRUZ Administration Furosemide 20 mg 08/25/17 19:11 08/25/17 19:26 Lasix 40 Mg/4 Ml IV 08/25/17 19:12 20 mg STAT ONE Administration Furosemide Confirm 08/25/17 19:22 Lasix 40 Mg/4 Ml Administered 08/25/17 19:23 Dose 40 mg .ROUTE .STK-MED ONE Sodium Chloride 1,000 mls @ 50 mls/hr 08/25/17 18:15 08/25/17 18:30 Sodium Chloride 0.9% 1000 Ml IV 09/24/17 18:14 50 mls/hr .Q20H MARICRUZ Administration Ceftriaxone Sodium/Dextrose 1 g in 50 mls @ 100 mls/hr 08/25/17 18:52 19:27 Rocephin 1 Gm-D5w 50 Ml Bag IV 08/25/17 19:21 100 mls/hr STAT STA Administration Azithromycin 500 mg in 250 mls @ 250 mls/hr 08/25/17 18:52 08/25/17 19:45 Zithromax 500 Mg/ 250 Ml Nacl Premix IV 08/25/17 19:51 250 mls/hr STAT STA Administration Azithromycin Confirm 08/25/17 19:22 Zithromax 500 Mg/ 250 Ml Nacl Premix Administered 08/25/17 19:23 Dose 500 mg in 250 mls @ ud IV .STK-MED ONE Ceftriaxone Sodium/Dextrose Confirm 08/25/17 19:22 Rocephin 1 Gm-D5w 50 Ml Bag Administered 08/25/17 19:23 Dose 1 g in 50 mls @ ud IV .STK-MED ONE Potassium Chloride 40 meq/ 272 mls @ 68 mls/hr 08/27/17 13:45 08/27/17 14:10 Lidocaine HCl 2 ml/ Sodium IV 08/27/17 17:44 68 mls/hr Chloride 1XONLY ONE Administration Simvastatin Confirm 08/25/17 22:38 Zocor 20mg Administered 08/25/17 22:39 Dose 20 mg .ROUTE .STK-MED ONE Intake & Output (Last 24 hours) 08/25/17 08/26/17 08/27/17 08/28/17 11:59 11:59 11:59 11:59 Intake Total 1052 1606 1040 Output Total 600 5940 7510 Balance 424 -193 -3743 Weight 71.5 kg 71.3 kg 71.6 kg Microbiology Results (Last 24 hours) 08/25/17 18:17 Blood - Pending 08/25/17 18:17 Blood Blood Culture - Preliminary NO GROWTH TO DATE 08/25/17 18:17 Blood - Pending 08/25/17 18:17 Blood Blood Culture - Preliminary NO GROWTH TO DATE Laboratory Results (Last 24 hours) 08/27/17 20:50 Potassium 3.4 L Orders (Last 24 hours) Category Date Time Status Pot [Potassium] Urgent Lab 08/27/17 20:50 Completed Potassium Cl 40 Meq/20 ml Vial [Potassium Chloride 40 Med 08/27/17 13:45 Discontinued MEQ/20 ML VIAL] 40 meq Lidocaine HCl 1% 20 ml Mdv [Xylocaine 1% HCl 20 ml Mdv] 2 ml NaCl 0.9% 250 ml [Sodium Chloride 0.9% 250 ML] 250 ml IV 1XONLY Qualify for Home Oxygen TODAY RT 08/28/17 07:51 Active Patient Care Notes (Last 24 hours) 08/28/17 10:30 (created 08/28/17 10:58) Case Management Note by Jessica Marin FAXED INFORMATION TO [facility] AT THIS TIME PER PT REQUEST FOR [facility] TO PROVIDE HOME OXYGEN QUALIFICATION AND MD ORDER. PT REPORTS THAT SHE IS FEELING BETTER AND HOPING TO GO HOME TODAY. DECLINED ADDNL NEEDS FOR DISCHARGE. WILL FOLLOW FOR ALL DC NEEDS. Initialized on 08/28/17 10:58 - END OF NOTE 08/28/17 10:08 Respiratory Note by Tremayne Lopez 0800, SATS ON 3 LPM NASAL CANNULA, HR-72, RR-22, PATIENT IS EATING BREAKFAST AT THIS TIME. O2 TAKEN OFF PATIENT AND TURNED OFF AT THE WALL. PATIENT ALSO INSTRUCTED ON THE NEED TO QUALIFY FOR HOME O2. SHE AGREED AND WE PROCEEDED. AT 0830 ROOM AIR SATS WERE 90%, HR-80, RR-20, WHILE IN BED RESTING. NO SOB NOTICED. PATIENT UP AND WALKING IN HALLWAY, SHE WALKED APPROX. 540 FEET, SATS DROPPED TO 88 ROOM AIR, NOTICEABLYSOB, COLOR-DUPONT IN THE FACE, STABLE ON HER FEET, HR-92, RR-24, BACK TO ROOM AND PLACED ON 2 LPM NASAL CANNULA AND WALKED WITH O2 ON AT 2 LPM NASAL CANNULA, HR-80, RR-20. NURSE DYLAN NOTIFIED. TREMAYNE LOPEZ MILLING SUPERVISOR Initialized on 08/28/17 10:08 - END OF NOTE Patient is doing better, will discharge home with home meds - Vitals & Intake/Output Vital Signs: Vital Signs Temperature 98.1 F 08/28/17 11:26 Pulse Rate 78 08/28/17 11:26 Respiratory Rate 18 08/28/17 11:26 Blood Pressure 122/63 08/28/17 11:26 O2 Sat by Pulse Oximetry 97 08/28/17 11:26 Oxygen-Last Documented O2 Percentage 2 Liters = 28% Intake & Output: Intake & Output 08/25/17 08/26/17 08/27/17 08/28/17 11:59 11:59 11:59 11:59 Intake Total 1052 1606 1040 Output Total 600 1900 2700 Balance 098 -271 -8186 Weight 71.5 kg 71.3 kg 71.6 kg - Lab Result Diagrams: 08/27/17 09:28 08/27/17 20:50 Lab Results-Last 24 Hrs: Lab Results-Last 24 Hours 08/27/17 Range/Units 20:50 Potassium 3.4 L (3.5-5.1) mEq/L - Radiology Exams Ordered Rad Exams-Entire Visit: Radiology Procedures Category Date Time Status CHEST 2 VIEWS (PA AND LAT) Urgent Exams 08/27/17 09:18 Completed - Procedures and Test Procedures and Tests throughout Hospitalization: Therapy Orders & Screens 08/25/17 21:08 RT Screen per Nursing Assess ONCE Comment: Protocol Order Physician Instructions: Greater than 3 points order RT Admission Screen Reason For Exam: Triggered on Admission Diagnosis: CHF, pneumonia Diagnosis: CHF, pneumonia Pneumonia: Yes Home O2: No Asthma: No CHF: Yes Home CPAP/BIPAP: No Home Nebs/MDI: No Total Points: 6 08/25/17 22:16 Oxygen NASAL CANNULA 3 lpm Comment: Diagnosis: CHF, pneumonia 08/25/17 22:17 Respiratory Nebulizer UD Comment: DUONEB Q4PRN Diagnosis: CHF, pneumonia 08/28/17 07:51 Qualify for Home Oxygen TODAY Comment: Diagnosis: c/o shortness of breath for 2-3 days Discharge Exam General Appearance: no apparent distress, alert Neurologic Exam: alert, oriented x 3, cooperative, normal mood/affect, nml cerebellar function, sensation nml, No motor deficits Skin Exam: normal color, warm, dry Eye Exam: PERRL, EOMI, eyes nml inspection Ears, Nose, Throat Exam: normal ENT inspection, pharynx normal, moist mucous membranes Neck Exam: normal inspection, non-tender, supple, full range of motion Respiratory Exam: normal breath sounds, lungs clear, No respiratory distress Cardiovascular Exam: regular rate/rhythm, normal heart sounds Gastrointestinal/Abdomen Exam: soft, No tenderness, No mass Extremity Exam: normal inspection, normal range of motion Back Exam: normal inspection, normal range of motion, No CVA tenderness, No vertebral tenderness Pelvic Exam: deferred Rectal Exam: deferred Final Diagnosis/Problem List - Final Discharge Diagnosis/Problem (1) Pneumonia Current Visit: Yes Status: Resolved Assessment & Plan: Last Vital Signs Temp 98.1 F 08/28/17 11:26 Pulse 78 08/28/17 11:26 Resp 18 08/28/17 11:26 BP 122/63 08/28/17 11:26 Pulse Ox 97 08/28/17 11:26 Allergies diphenhydramine HCl [From Benadryl] Allergy (Mild, Verified 08/25/17 18:09) iodine [Iodine] Allergy (Mild, Verified 08/25/17 18:09) erythromycin base Adverse Reaction (Verified 08/25/17 20:35) Rash Active Medications Acetaminophen (Tylenol 325 Mg) 650 mg PO Q4H PRN PRN PRN Reason: PAIN AND/OR FEVER Stop: 09/24/17 20:15 Last Admin: 08/26/17 03:26 Dose: 650 mg Albuterol/Ipratropium (Duoneb 0.5-3 Mg/3 Ml Neb) 3 ml IH Q4HPRN PRN PRN Reason: SHORTNESS OF BREATH/WHEEZING Stop: 09/24/17 22:14 Amlodipine Besylate (Norvasc 5 Mg) 5 mg PO DAILY [facility] Stop: 09/25/17 11:59 Last Admin: 08/28/17 09:46 Dose: 5 mg Aspirin (Ecotrin 81 Mg) 81 mg PO DAILY [facility] Stop: 09/25/17 11:59 Last Admin: 08/28/17 09:47 Dose: Not Given Calcium Carbonate (Calcium 500mg W/Vit D Tablet) 1 tab PO DAILY [facility] Stop: 09/25/17 11:59 Last Admin: 08/28/17 09:47 Dose: Not Given Carvedilol (Coreg 12.5 Mg) 25 mg PO TID [facility] Stop: 09/24/17 21:59 Last Admin: 08/28/17 09:46 Dose: 25 mg Dronedarone (Multaq 400 Mg) 400 mg PO BIDWM [facility]UZ Stop: 09/25/17 07:59 Last Admin: 08/28/17 07:53 Dose: 400 mg Furosemide (Lasix 40 Mg/4 Ml) 40 mg IV BID DIURETIC MARICRUZ Stop: 09/25/17 16:59 Last Admin: 08/28/17 09:46 Dose: 40 mg Azithromycin (Zithromax 500 Mg/ 250 Ml Nacl Premix) 500 mg in 250 mls @ 250 mls /hr IV Q24H [facility] Stop: 09/25/17 18:59 Last Admin: 08/27/17 20:06 Dose: 250 mls/hr Ceftriaxone Sodium/Dextrose (Rocephin 1 Gm-D5w 50 Ml Bag) 1 g in 50 mls @ 100 mls/hr IV Q24H [facility] Stop: 09/25/17 17:59 Last Admin: 08/27/17 18:12 Dose: 100 mls/hr Lactobacillus Acidophilus (Acidophilus Tablet) 1 tab PO DAILY [facility] Stop: 09/25/17 11:59 Last Admin: 08/28/17 09:46 Dose: Not Given Loratadine (Claritin 10 Mg) 10 mg PO DAILY [facility] Stop: 09/25/17 11:59 Last Admin: 08/28/17 09:47 Dose: Not Given Simvastatin (Zocor 20mg) 20 mg PO HS [facility] Stop: 09/25/17 21:59 Last Admin: 08/27/17 21:34 Dose: 20 mg Intake & Output 08/27/17 08/28/17 11:59 11:59 Intake Total 1606 1040 Output Total 1900 2700 Balance -294 -1660 Weight 71.3 kg 71.6 kg Orders 08/28/17 07:51 Qualify for Home Oxygen TODAY Lab Tests 08/27/17 20:50 Potassium 3.4 L Microbiology 08/25/17 18:17 Blood Blood Culture - Preliminary NO GROWTH TO DATE 08/25/17 18:17 Blood Blood Culture - Preliminary NO GROWTH TO DATE (2) CHF (congestive heart failure) Current Visit: Yes Status: Chronic Priority: High (3) Atrial fibrillation Current Visit: Yes Status: Acute (4) COPD (chronic obstructive pulmonary disease) Current Visit: Yes Status: Acute - Discharge Discharge Date: 08/28/17 Disposition: Home, Self-Care Condition: Stable Prescriptions: No Action Aspirin 81 mg PO DAILY Simvastatin 20Mg [Zocor 20Mg] 20 mg PO HS Potassium 99 mg PO DAILY Calcium Citrate/Vitamin D3 [Citracal + D Caplet] 1 each PO DAILY Bifidobacterium Infantis [Align] 0 mg PO DAILY Rivaroxaban 10 mg Tablet [Xarelto 10 mg Tablet] 15 mg PO DAILY Dronedarone Hydrochloride 400* [Multaq 400 MG] 400 mg PO BID Carvedilol 25 mg PO TID Amlodipine Besylate 5 mg PO DAILY Cetirizine HCl [Zyrtec] 10 mg PO DAILY Patient Own Med [Patient Own Medication] 1 tab PO BID Instructions: Atrial Fibrillation (DC), Heart Failure, Adult (DC), Pneumonia, Adult (DC), Oxygen Therapy, Adult (DC) Follow up with: GEOFFREY JANE [CONSULTING PHYSICIAN] - 09/05/17 12:15 pm ESDRAS PARTIDA MD [Primary Care Provider] - 09/04/17 10:45 am
== END 2017-08-28 13:00 | disposition home or self-care (01) | DRG 193 ==
LOC: ED 18:01 → MED SURG 20:05
PROVIDERS: ADMIT General Practice; ATTEND General Practice
DX: I50.9 Heart failure, unspecified (principal); R50.9 Fever, unspecified; J18.9 Pneumonia, unspecified organism; R51 Headache; J18.1 Lobar pneumonia, unspecified organism; I50.43 Acute on chronic combined systolic (congestive) and diastolic (congestive) heart failure; J44.9 Chronic obstructive pulmonary disease, unspecified; I10 Essential (primary) hypertension; I48.0 Paroxysmal atrial fibrillation; Z79.01 Long term (current) use of anticoagulants; Z79.899 Other long term (current) drug therapy
CPT/HCPCS: 36000; 36415; 71045; 71046; 80048; 80053; 82805; 83605; 83880; 84132; 84484; 85025; 85027; 87040; 87631; 93005; 93041; 94640; 94760; 96360; 96365; 96367; 96374; 99285; J0456; J0696; J1940; J3480; A9270-GY

== ENCOUNTER 2018-04-15 06:51 | Emergency (ER) | payer MEDICARE ==
[2018-04-15] MEDS ORDERED: ZOFRAN ODT 4 MG (07:37)
[2018-04-15] MEDS ORDERED: MORPHINE SULFATE 2 MG INJ (07:37)
[2018-04-15] MEDS ORDERED: solu-MEDROL 125 MG (07:37)
[2018-04-15] MEDS ORDERED: Valium 5 MG (07:37)
[2018-04-15] MEDS: MORPHINE SULFATE 2 MG INJ IM (07:40)
[2018-04-15] MEDS: solu-MEDROL 125 MG IM (07:40)
[2018-04-15] MEDS: ZOFRAN ODT 4 MG PO (07:40)
[2018-04-15] MEDS: Valium 5 MG PO (07:41)
== END 2018-04-15 08:22 | disposition home or self-care (01) ==
LOC: ED 06:51
CPT/HCPCS: 73030; 73060; 96372; J2270; J2930; Q0162

== ENCOUNTER 2020-12-10 11:54 | Emergency (ER) | payer MEDICARE ==
[2020-12-10] MEDS ORDERED: Sodium Chloride 0.9% 1000 ML 1,000 ML IV SCH (12:00)
--- NOTE | 2020-12-10 12:13 | ERPHSYRPT ---
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 Patient was sitting up getting curlers in her hair when she suddenly had a syncopal episode. Patient states that she was feeling fine up until that point. She had a similar episode approximately 1 week ago. Her torpedoman's mate, Dr. Castillo, made some changes in her medications. Patient symptoms suddenly resolved prior to arrival to this emergency room today. Patient denies chest pain. She denies head injury. She denies shortness of air. She denies cough. Patient's primary care physician is Dr. Partida. Witnessed: other Prior Episodes: single episode today Timing/Duration: today Precipitating Factors: unknown Context: sitting Loss of Consciousness: brief (seconds) Charcter of event(s): became unresponsive Allergies/Adverse Reactions: diphenhydramine HCl [From Benadryl] Allergy (Mild, Verified 04/15/18 07:04) iodine [Iodine] Allergy (Mild, Verified 04/15/18 07:04) erythromycin base Adverse Reaction (Verified 04/15/18 07:04) Rash Home Medications: Aspirin 81 mg PO DAILY 01/24/12 [History] Simvastatin 20Mg [Zocor 20Mg] 20 mg PO HS 01/24/12 [History] Amlodipine Besylate 5 mg PO DAILY 08/25/17 [History] Bifidobacterium Infantis [Align] 0 mg PO DAILY 08/25/17 [History] Calcium Citrate/Vitamin D3 [Citracal + D Caplet] 1 each PO DAILY 08/25/17 [History] Cetirizine HCl [Zyrtec] 10 mg PO DAILY 08/25/17 [History] Dronedarone Hydrochloride 400* [Multaq 400 MG] 400 mg PO BID 08/25/17 [History] Patient Own Med [Patient Own Medication] 1 tab PO BID 08/25/17 [History] carvediloL [Carvedilol] 25 mg PO TID 08/25/17 [History] Potassium Chloride 10 Meq Tab* [Klor Con 10 MEQ] 10 meq PO DAILY 04/15/18 [History] Rabeprazole Sodium 20 mg PO DAILY 04/15/18 [History] Sucralfate 1000 mg/10 ml [Carafate SUSPENSION 1000 MG/10 ML] 10 ml PO DAILY 04/15/18 [History] Hx Tetanus, Diphtheria Vaccination/Date Given: Yes (UNKNOWN) Hx Influenza Vaccination/Date Given: No Hx Pneumococcal Vaccination/Date Given: Yes Travel Risk - International Travel Have you traveled outside of the country in past 3 weeks: No - Coronavirus Screening Are you exhibiting any of the following symptoms?: No Close contact with a COVID-19 positive Pt in past 14-21 Days: No - Vaccine Status Have you recieved a Covid-19 vaccination: Yes 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: [employer] - Vaccination Dates Date of 2cond Vaccination (if applicable): sep - Past Medical History Pertinent Past Medical History: Yes Neurological History: No Pertinent History ENT History: No Pertinent History Cardiac History: High Cholesterol, Hypertension Respiratory History: No Pertinent History Endocrine Medical History: No Pertinent History Musculoskeletal History: No Pertinent History GI Medical History: No Pertinent History History: No Pertinent History Psycho-Social History: No Pertinent History Female Reproductive Disorders: No Pertinent History Other Medical History: Paroxysmal atrial fibrillation - Past Surgical History Past Surgical History: Yes Neuro Surgical History: No Pertinent History Cardiac: Cardiac Catheterization, Cardiac Stent Respiratory: No Pertinent History Gastrointestinal: No Pertinent History Genitourinary: No Pertinent History Musculoskeletal: No Pertinent History Female Surgical History: Hysterectomy - Social History Smoking Status: Never smoker Exposure to second hand smoke: No Drug Use: none Patient Lives Alone: Yes - Female History Hx Last Menstrual Period: post - Review of Systems Constitutional: No Symptoms Eyes: No Symptoms Ears, Nose, & Throat: No Symptoms Respiratory: No Symptoms Cardiac: No Symptoms Abdominal/Gastrointestinal: No Symptoms Genitourinary Symptoms: No Symptoms Musculoskeletal: No Symptoms Skin: No Symptoms Neurological: No Symptoms Psychological: No Symptoms Endocrine: No Symptoms Hematologic/Lymphatic: No Symptoms Immunological/Allergic: No Symptoms All Other Systems: Reviewed and Negative Physical Exam - Nursing Vital Signs Nursing Vital Signs: Initial Vital Signs Temperature 97.2 F 12/10/20 11:55 Pulse Rate 105 H 12/10/20 11:55 Respiratory Rate 20 12/10/20 11:55 Blood Pressure 137/88 12/10/20 11:55 O2 Sat by Pulse Oximetry 97 12/10/20 11:55 Pain Scale Pain Intensity 0 - Parsons Coma Scale Best Eye Response (Venessa): (4) open spontaneously Best Verbal Response (Venessa): (5) oriented Best Motor Response (Parsons): (6) obeys commands Venessa Total: 15 - Physical Exam General Appearance: no apparent distress, alert Eye Exam: bilateral eye: normal inspection, PERRL, EOMI Ears, Nose, Throat Exam: normal ENT inspection, moist mucous membranes Neck Exam: normal inspection, non-tender, supple, full range of motion Respiratory: normal breath sounds, lungs clear, airway intact, No chest tenderness, No respiratory distress Cardiovascular: regular rate/rhythm, normal heart sounds, normal peripheral pulses Gastrointestinal: soft, normal bowel sounds, No tenderness Pelvic Exam: not done Rectal Exam: not done Back Exam: normal inspection, normal range of motion, No CVA tenderness, No vertebral tenderness Extremity Exam: normal inspection, normal range of motion, pelvis stable 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 There are no changes in EKG when compared to EKG dated 08/25/2017) Ordered Tests: Active Orders 24 hr Category Date Time Status EKG-ER Only STAT Care 12/10/20 11:59 Active IV Insertion STAT Care 12/10/20 11:59 Active Pulse Oximetry (ED) STAT Care 12/10/20 11:59 Active HEAD WITHOUT CONTRAST [CT] Stat Exams 12/10/20 13:18 Completed CBC W DIFF Stat Lab 12/10/20 12:13 Completed CMP Stat Lab 12/10/20 12:13 Completed PROTIME WITH INR Stat Lab 12/10/20 12:13 Completed TROPONIN Q3H Lab 12/10/20 12:13 Completed TROPONIN Q3H Lab 12/10/20 15:00 Ordered TROPONIN Q3H Lab 12/10/20 18:00 Ordered TROPONIN Q3H Lab 12/10/20 21:00 Ordered TROPONIN Q3H Lab 12/11/20 00:00 Ordered UA W/RFX UR CULTURE Stat Lab 12/10/20 13:29 Completed Medication Summary Generic Name Dose Route Start Last Admin Trade Name Freq PRN Reason Stop Dose Admin Sodium Chloride 1,000 mls @ 50 mls/hr 12/10/20 12:00 12/10/20 14:02 Sodium Chloride 0.9% 1000 Ml IV 01/09/21 11:59 Not Given .Q20H [facility] Lab/Rad Data: Laboratory Result Diagrams 12/10/20 12:13 12/10/20 12:13 Laboratory Results 12/10/20 12/10/20 12/10/20 Range/Units 13:29 12:13 12:13 WBC (4.0-10.5) K/mm3 RBC (4.1-5.4) M/mm3 Hgb (12.0-16.0) gm/dl Hct (35-47) % MCV (78-100) fl MCH (26-32) pg MCHC (32-36) g/dl RDW (11.5-14.0) % Plt Count (150-450) K/mm3 MPV (7.5-11.0) fl Gran % (36.0-66.0) % Eos # (Auto) (0-0.5) Absolute Lymphs (auto) (1.0-4.6) Absolute Monos (auto) (0.0-1.3) Lymphocytes % (24.0-44.0) % Monocytes % (0.0-12.0) % Eosinophils % (0.00-5.0) % Basophils % (0.0-0.4) % Absolute Granulocytes (1.4-6.9) Basophils # (0-0.4) PT 12.9 H (9.95-12.35) SECONDS INR 1.14 (0.8-3.0) Sodium (137-145) mmol/L Potassium (3.5-5.1) mmol/L Chloride (98-107) mmol/L Carbon Dioxide (22-30) mmol/L Anion Gap (5-15) MEQ/L BUN (7-17) mg/dL Creatinine (0.52-1.04) mg/dL Estimated GFR ML/MIN Glucose (74-106) mg/dL Calcium (8.4-10.2) mg/dL Total Bilirubin (0.2-1.3) mg/dL AST (14-36) U/L ALT (0-35) U/L Alkaline Phosphatase (38-126) U/L Troponin I < 0.012 (0.000-0.034) ng/mL Serum Total Protein (6.3-8.2) g/dL Albumin (3.5-5.0) g/dL Urine Color STRAW (YELLOW) Urine Appearance CLEAR (CLEAR) Urine pH 6.0 (5-6) Ur Specific Erie 1.005 (1.005-1.025) Urine Protein NEGATIVE (Negative) Urine Ketones NEGATIVE (NEGATIVE) Urine Blood NEGATIVE (0-5) Brice/ul Urine Nitrite NEGATIVE (NEGATIVE) Urine Bilirubin NEGATIVE (NEGATIVE) Urine Urobilinogen NEGATIVE (0-1) mg/dL Ur Leukocyte Esterase TRACE (NEGATIVE) Urine WBC (Auto) 0-2 (0-5) /HPF Urine RBC (Auto) NONE (0-2) /HPF U Hyaline Cast (Auto) 11-25 (0-2) /LPF U Epithel Cells (Auto) NONE (FEW) /HPF Urine Bacteria (Auto) NONE SEEN (NEGATIVE) /HPF Urine Culture Reflexed NO (NO) Urine Glucose NEGATIVE (NEGATIVE) mg/dL 12/10/20 12/10/20 Range/Units 12:13 12:13 WBC 3.7 L (4.0-10.5) K/mm3 RBC 4.10 (4.1-5.4) M/mm3 Hgb 12.6 (12.0-16.0) gm/dl Hct 38.7 (35-47) % MCV 94.4 (78-100) fl MCH 30.7 (26-32) pg MCHC 32.6 (32-36) g/dl RDW 13.0 (11.5-14.0) % Plt Count 195 (150-450) K/mm3 MPV 9.6 (7.5-11.0) fl Gran % 60.9 (36.0-66.0) % Eos # (Auto) 0.15 (0-0.5) Absolute Lymphs (auto) 0.80 L (1.0-4.6) Absolute Monos (auto) 0.45 (0.0-1.3) Lymphocytes % 21.7 L (24.0-44.0) % Monocytes % 12.2 H (0.0-12.0) % Eosinophils % 4.1 (0.00-5.0) % Basophils % 1.1 (0.0-0.4) % Absolute Granulocytes 2.24 (1.4-6.9) Basophils # 0.04 (0-0.4) PT (9.95-12.35) SECONDS INR (0.8-3.0) Sodium 135 L (137-145) mmol/L Potassium 4.2 (3.5-5.1) mmol/L Chloride 100 (98-107) mmol/L Carbon Dioxide 30 (22-30) mmol/L Anion Gap 9.4 (5-15) MEQ/L BUN 18 H (7-17) mg/dL Creatinine 1.06 H (0.52-1.04) mg/dL Estimated GFR 51.9 ML/MIN Glucose 101 (74-106) mg/dL Calcium 8.9 (8.4-10.2) mg/dL Total Bilirubin 0.50 (0.2-1.3) mg/dL AST 24 (14-36) U/L ALT 13 (0-35) U/L Alkaline Phosphatase 62 (38-126) U/L Troponin I (0.000-0.034) ng/mL Serum Total Protein 6.3 (6.3-8.2) g/dL Albumin 3.6 (3.5-5.0) g/dL Urine Color (YELLOW) Urine Appearance (CLEAR) Urine pH (5-6) Ur Specific Erie (1.005-1.025) Urine Protein (Negative) Urine Ketones (NEGATIVE) Urine Blood (0-5) Brice/ul Urine Nitrite (NEGATIVE) Urine Bilirubin (NEGATIVE) Urine Urobilinogen (0-1) mg/dL Ur Leukocyte Esterase (NEGATIVE) Urine WBC (Auto) (0-5) /HPF Urine RBC (Auto) (0-2) /HPF U Hyaline Cast (Auto) (0-2) /LPF U Epithel Cells (Auto) (FEW) /HPF Urine Bacteria (Auto) (NEGATIVE) /HPF Urine Culture Reflexed (NO) Urine Glucose (NEGATIVE) mg/dL - Progress Progress: improved, re-examined Progress Note: 12/10/20 14:03 CAT scan of the head without contrast shows a right internal capsule remote infarct. No acute intracranial abnormality. 12/10/20 14:44 Medical decision making: This patient is stable for discharge to home. I did speak with the patient's torpedoman's mate, Dr. Castillo. He states that the patient can be discharged to home but does want her to come by his office to put on a special ekg monitor that she will wear for at least a month so he can cigar packer and picker cardiac rhythm if/when she has another episode of syncope. At the time of discharge from this emergency department, the patient has no chest pain and no shortness of breath. She wants to be discharged to home. Counseled pt/family regarding: lab results, diagnosis, need for follow-up, rad results - Departure Departure Disposition: Home Clinical Impression: Syncopal episodes Condition: Stable Critical Care Time: No Referrals: ESDRAS PARTIDA MD [Primary Care Provider] - Additional Instructions: Go directly from here to Dr. Castillo office to have the ekg monitor placed.
[2020-12-10 12:32] LABS: Absolute Neutrophil Ct (ANC) 2.24 (1.4-6.9); BASOPHIL % 1.1 % (0.0-0.4); Basophil (Absolute #) 0.04 (0-0.4); Eosinophil % 4.1 % (0.00-5.0); Eosinophil (Absolute #) 0.15 (0-0.5); Hematocrit 38.7 % (35-47); Hemoglobin 12.6 gm/dl (12.0-16.0); Lymphocytes % 21.7 % (24.0-44.0); Mean Cell Volume 94.4 fl (78-100); Mean Corpuscular Hemoglobin 30.7 pg (26-32); Mean Corpuscular Hgb Concent. 32.6 g/dl (32-36); Mean Platelet Volume 9.6 fl (7.5-11.0); Monocyte (Absolute #) 0.45 (0.0-1.3); Monocytes % 12.2 % (0.0-12.0); Neutrophil % 60.9 % (36.0-66.0); Platelet Count 195 K/mm3 (150-450); White Blood Count 3.7 K/mm3 (4.0-10.5)
[2020-12-10 12:38] LABS: INR 1.14 (0.8-3.0); PROTIME 12.9 SECONDS (9.95-12.35)
[2020-12-10 12:42] LABS: ALBUMIN 3.6 g/dL (3.5-5.0); ANION GAP 9.4 MEQ/L (5-15); BILIRUBIN,TOTAL 0.5 mg/dL (0.2-1.3); Calcium 8.9 mg/dL (8.4-10.2); Creatinine 1 1.06 mg/dL (0.52-1.04); EST GLOMERULAR FILTRATION RATE 51.9 ML/MIN; Potassium 4.2 mmol/L (3.5-5.1); Total Protein 6.3 g/dL (6.3-8.2)
--- NOTE | 2020-12-10 13:40 | XRAY ---
Indication: Pain and syncope. Dizziness. Multiple contiguous axial images obtained through the head without contrast. Comparison: None Age-appropriate global atrophy. Right internal capsule remote lacunar infarct. No acute intracranial hemorrhage, abnormal extra-axial fluid collection, or mass effect. Fourth ventricle is midline without hydrocephalus. Metzger-white matter differentiation preserved. Bony calvarium intact. Visualized paranasal sinuses and mastoid air cells are clear. Impression: Remote lacunar infarct right internal capsule. Remaining CT head without contrast exam is negative.
[2020-12-10 14:20] LABS: Appearance CLEAR (CLEAR); Bilirubin NEGATIVE (NEGATIVE); Blood NEGATIVE Ery/ul (0-5); Glucose NEGATIVE (NEGATIVE); Ketones NEGATIVE (NEGATIVE); Leukocyte Esterase TRACE (NEGATIVE); Nitrite NEGATIVE (NEGATIVE); Protein,Urine Dip NEGATIVE (Negative); Specific Gravity 1.005 (1.005-1.025); Urobilinogen NEGATIVE mg/dL (0-1); WBC 0-2 /HPF (0-5)
[2020-12-10 14:21] LABS: Bacteria NONE SEEN /HPF (NEGATIVE)
[2020-12-10 14:59] VITALS: BP 135/60; PULSE 76; O2SAT 94
== END 2020-12-10 15:00 | disposition home or self-care (01) ==
LOC: ED 11:54
DX: R55 Syncope and collapse (principal)
CPT/HCPCS: 36415; 70450; 80053; 81001; 84484; 85025; 85610; 93005; 94760; 99284